=== PATIENT | female | born 1975 ===

== ENCOUNTER 2016-08-17 14:05 | Emergency (ER) | payer MEDICAID ==
--- NOTE | 2016-08-21 10:05 | RAD ---
PROCEDURE: Two-view chest HISTORY: Chest pain and cough COMPARISON: None TECHNIQUE: Standard protocol for this study/examination. FINDINGS: No active pulmonary disease. No pulmonary nodules, masses or infiltrates. No evidence of acute, significant cardiovascular disease. No significant pleural, osseous or subdiaphragmatic abnormalities. IMPRESSION: No active disease.
== END 2016-08-17 18:08 | disposition home or self-care (01) ==
LOC: H.ER 14:05
DX: J40 Bronchitis, not specified as acute or chronic (principal)

== ENCOUNTER 2017-03-15 15:14 | Emergency (ER) | payer OTHER, MEDICAID ==
[2017-03-15 15:38] VITALS: BP 156/77; PULSE 70; RESP 18; TEMP 98.3; O2SAT 99
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
--- NOTE | 2017-03-15 19:04 | RAD ---
PROCEDURE: Cervical Spine Radiographs. HISTORY: Pain. COMPARISON: None. FINDINGS: BONES: Alignment maintained. No fracture. Dens Intact. DISC SPACES: Normal. SOFT TISSUES: Normal. No prevertebral soft tissue swelling. OTHER FINDINGS: None. IMPRESSION: Normal cervical spine radiographs
== END 2017-03-15 17:16 | disposition home or self-care (01) ==
LOC: H.ER 15:14
DX: S13.4XXA Sprain of ligaments of cervical spine, initial encounter (principal); S20.219A Contusion of unspecified front wall of thorax, initial encounter; V43.52XA Car driver injured in collision with other type car in traffic accident, initial encounter; Y92.410 Unspecified street and highway as the place of occurrence of the external cause; F17.200 Nicotine dependence, unspecified, uncomplicated
CPT/HCPCS: 71111; 72040; 81025; 96372; 99282; J1885